=== PATIENT | male | born 1985 | race Caucasian/White ===

== ENCOUNTER 2023-02-23 09:20 | Outpatient (AMB) | payer OTHER, SELFPAY ==
--- NOTE | 2023-02-23 09:25 | AM.OFFWIN_ITS ---
Intake Vital Signs 02/23/23 09:32 Weight 187 lb BP 120/80 Blood Pressure Location Lt brachial Position Sitting Pulse 94 Pulse Source Pulse Oximeter Temp 98.3 F Temp Source Oral Pulse Oximetry (%) 95 Oxygen Delivery Method Room Air Intake Visit Reasons: EP, cough, sore throat Intake Note: Patient here for cough, sore throat and congestion which started about 3 days ago. Patient Tobacco Use Status: Former Tobacco user Allergies Sulfa (Sulfonamide Antibiotics) Adverse Reaction (Mild, Verified 02/23/23 09:56) unknown Medication List - Last Reconciled 02/23/23 by Rita Gonzalez CNP No Known Home Meds Do you need a note to return to daycare/school/sports/work: Yes HPI HPI Comments History of Present Illness Details 37-year-old male presents [facility] for complaint of sore throat, and cough x 3 days. He does report being in contact w/ co-worker whom tested + for Covid 2 weeks ago. He reports fever, chills, sinus pressure, and yellowish-green nasal discharge. He denies SOB, CP, wheezing, sputum production, abdominal pain, nausea, vomiting, or changes in bowels or bladder. He also is requesting a note for absence from work for the last 3 days. [facility] Social History Patient Tobacco Use Status: Former Tobacco user Review of Systems Const All systems reviewed & are unremarkable except as noted in HPI and below Physical Exam Vital Signs: Last Vital Signs Temp 98.3 F 02/23/23 09:32 Pulse 94 02/23/23 09:32 BP 120/80 02/23/23 09:32 Pulse Ox 95 02/23/23 09:32 Oxygen Delivery Method Room Air 02/23/23 09:32 Const General: healthy appearing and no acute distress Nutritional Appearance: well nourished Orientation/consciousness: patient oriented x3 Limitations: no limitations HEENT Head: Yes normal to inspection, Yes normocephalic and Yes atraumatic Ears: hearing grossly normal bilaterally General nose exam: Abnormal mucous membranes and turbinates present erythematous and Nasal discharge present other (dark yellowish green) Face and sinus: Yes sinus tenderness Mouth: moist mucous membranes Throat: Yes postnasal drainage and Yes other (posterior oropharynx erythema, no edema or white patches) Eyes General: appearance normal, both eyes and all related structures Neck Neck: Yes normal visual inspection, Yes full ROM, Yes no lymphadenopathy, Yes no meningeal signs and Yes supple Chest Chest palpation & inspection: normal inspection of the chest Resp Effort & Inspection: normal respiratory effort, Actively coughing Quality: dry, no respiratory distress and not tachypneic Auscultation: clear to auscultation bilaterally, no rales, no rhonchi and no wheezes Cardio Rate: regular rate Rhythm: regular rhythm Heart sounds: S1 normal heart sound present, S2 normal heart sound present and no murmurs Peripheral pulses: Peripheral pulses 2+ throughout GI Palpation (GI): Soft to palpation, nontender and No hepatosplenomegaly present Auscultation: normal bowel sounds General: Yes no CVA tenderness Back/Spine/Pelvis Back: no CVA tenderness Skin General skin exam: no rashes or lesions noted, elasticity normal and turgor normal Neuro General: patient oriented x3, gait normal, moves all extremities and no meningeal signs Extrem General: Yes normal to inspection, Yes full ROM, Yes capillary refill normal and Yes no clubbing, cyanosis or edema Psych Appearance: well kempt Mental Status: mental status grossly normal Speech and movement: Normal speech and movement present Affect: normal affect Results AMB Rapid Strep AMB Rapid Strep Negative Last Edit by LOIS Ray on 02/23/23 09:38 Results Reviewed Results Reviewed: Laboratory Last Values Strep Scn Rapid Clinic Negative 02/23/23 09:37 Assessment & Plan Assessment & Plan (1) Sinusitis: Code(s): J32.9 - Chronic sinusitis, unspecified Qualifiers: Sinusitis location: maxillary Chronicity: acute Recurrence: non- recurrent Qualified Code(s): J01.00 - Acute maxillary sinusitis, unspecified Plan: 37-year-old male seen today for symptoms of acute sinusitis COVID/RSV/influenza nasal PCR negative Rapid strep screen negative Will treat for sinusitis with amoxicillin 500 mg p.o. b.i.d. x7 days, encouraged to take with food or milk to reduce GI upset. Encouraged to drink plenty of fluid and get plenty of rest. Warm salt water gargle for irritated throat Azvs-wox-essowyb nasal saline to bilateral nostrils. Work note provided Will return to office for worsening or unresolved symptoms. Orders: Orders SARS-CoV2/FLU/RSV 02/23/23 R05.9 - Cough, unspecified, R68.89 - Other general symptoms and signs AMB Rapid Strep Screen 02/23/23 Z13.9 - Encounter for screening, unspecified Medications: New amoxicillin 500 mg PO BID 10 caps 0RF J32.9 - Chronic sinusitis, unspecified Coding Level of Care Code Est Pt Level 3 (98334) Diagnoses Acute non-recurrent maxillary sinusitis J01.00 Sinusitis location: maxillary Chronicity: acute Recurrence: non-recurrent
[2023-02-23 09:32] VITALS: BP 120/80; PULSE 94; TEMP 36.8; O2SAT 95
== END 2023-02-23 10:10 | disposition home or self-care (01) ==
PROVIDERS: Visit Provider Nurse Practitioner Acute Care
DX: J01.00 Acute maxillary sinusitis, unspecified (principal)
CPT/HCPCS: 99051; 99213

== ENCOUNTER 2023-02-23 10:00 | Outpatient (REF) | payer OTHER, SELFPAY ==
[2023-02-23 12:37] LABS: Influenza A PCR NEGATIVE (Negative); Influenza B PCR NEGATIVE (Negative); Resp Syncy Virus RNA Qual PCR NEGATIVE (Negative); SARS COV2 PCR INHOUSE NEGATIVE (Negative)
== END 2023-02-23 10:01 | disposition home or self-care (01) ==
LOC: HO.LAB 10:00
PROVIDERS: Visit Provider Nurse Practitioner Acute Care
DX: Z20.822 Contact with and (suspected) exposure to COVID-19 (principal); R05.9 Cough, unspecified; R68.89 Other general symptoms and signs
CPT/HCPCS: 0241U

== ENCOUNTER 2024-01-16 12:51 | Outpatient (AMB) | payer OTHER, SELFPAY ==
--- NOTE | 2024-01-16 12:52 | AM.OFFWIN_ITS ---
Intake Vital Signs 01/16/24 12:53 Height 5 ft 9 in Weight 187 lb BMI 27.6 BP 110/78 Blood Pressure Location Rt brachial Position Sitting Pulse 89 Pulse Source Pulse Oximeter Temp 98.5 F Temp Source Oral Pulse Oximetry (%) 98 Oxygen Delivery Method Room Air Intake Visit Reasons: EP stomach concerns 2-3 days Intake Note: pt c/o stomach upset, N/V x 2-3 days Patient Tobacco Use Status: Former Tobacco user Allergies Sulfa (Sulfonamide Antibiotics) Adverse Reaction (Mild, Verified 01/16/24 12:52) unknown Do you need a note to return to daycare/school/sports/work: No HPI HPI Comments History of Present Illness Details Patient is a 38-year-old male complaining of 2-3 days of nausea vomiting and diarrhea. He states the diarrhea comes and goes and he denies any black in his stools but does state there was some red streaking in one of his bowel movements. He states he has been nauseous and vomited a few times, usually it is random and not after every meal he eats. He denies any blood in his vomit. He does however state that he had 1 episode of bloody vomitus a few months ago that resolved on its own. He does admit to drinking 8 alcoholic drinks per day, 7 days per week. He tells me he does not have a primary care doctor or a GI doctor. He is in the midst of trying to figure out getting a new primary care doctor right now. He denies any fevers. [facility] Social History Patient Tobacco Use Status: Former Tobacco user Review of Systems Const All systems reviewed & are unremarkable except as noted in HPI and below Physical Exam Vital Signs: Last Vital Signs Temp 98.5 F 01/16/24 12:53 Pulse 89 01/16/24 12:53 BP 110/78 01/16/24 12:53 Pulse Ox 98 01/16/24 12:53 Oxygen Delivery Method Room Air 01/16/24 12:53 BMI result Body Mass Index 27.6 Const General: cooperative, healthy appearing, comfortable, no acute distress and well developed Orientation/consciousness: patient oriented x3 Limitations: no limitations HEENT Head: Yes normal to inspection Ears: hearing grossly normal bilaterally General nose exam: Normal external nose present Face and sinus: Yes normal facial exam Eyes General: appearance normal, both eyes and all related structures Neck Neck: Yes normal visual inspection and Yes full ROM Resp Effort & Inspection: normal respiratory effort and able to speak in complete sentences GI Other: Negative Patel's sign Inspection: Yes normal to inspection Palpation (GI): Soft to palpation, nontender, no guarding and No hepatosplenomegaly present Auscultation: normal bowel sounds Skin General skin exam: no rashes or lesions noted Neuro General: patient oriented x3 Extrem General: Yes normal to inspection Assessment & Plan Assessment & Plan (1) Abdominal pain: Code(s): R10.9 - Unspecified abdominal pain Qualifiers: Abdominal location: lower abdomen, unspecified Qualified Code(s): R10.30 - Lower abdominal pain, unspecified Plan: Vital signs are stable, physical exam was unremarkable. Likely viral gastroenteritis. We will give him some Bentyl to manage his symptoms until it resolves. Gave patient red flag warning signs and when to go to the emergency department. We had an extensive conversation about the differential as well as his drinking and how that is contributing to his overall health; we also discussed cutting back on his drinking versus quitting and how dangerous quitting alcohol cold turkey can be. Educated patient on the importance of having a primary care doctor and then establishing care with a GI doctor. (2) Nausea and vomiting: Code(s): R11.2 - Nausea with vomiting, unspecified Qualifiers: Vomiting type: unspecified Qualified Code(s): R11.2 - Nausea with vomiting, unspecified Plan: See above Plan See above Medications: New dicyclomine 20 mg PO Q6H PRN 14 tabs 0RF abdominal pain Coding Level of Care Code New Pt Level 4 (69812) Diagnoses Lower abdominal pain R10.30 Abdominal location: lower abdomen, unspecified Nausea and vomiting, unspecified vomiting type R11.2 Vomiting type: unspecified
[2024-01-16 12:53] VITALS: BP 110/78; PULSE 89; TEMP 36.9; O2SAT 98; BMI 27.6
== END 2024-01-16 13:23 | disposition home or self-care (01) ==
PROVIDERS: Visit Provider Physician Assistant
DX: R10.30 Lower abdominal pain, unspecified (principal); R11.2 Nausea with vomiting, unspecified
CPT/HCPCS: 99204

== ENCOUNTER 2024-09-11 08:53 | Emergency (ER) | payer OTHER, SELFPAY ==
[2024-09-11 08:57] VITALS: BP 120/82; PULSE 84
[2024-09-11 09:03] VITALS: BMI 29.9
[2024-09-11 09:18] VITALS: PULSE 84
--- NOTE | 2024-09-11 09:21 | PC.NURSE ---
Calm and cooperative, changed over with security, provided with food/fluids per patient request.
--- NOTE | 2024-09-11 09:33 | PC.NURSE ---
Seen by [employer] argumentative regarding needing to be picked up by a sober compactor driver. Provided with phone to call
--- NOTE | 2024-09-11 09:39 | MHC.EDTECH ---
Patient is refusing all testing. RN aware.
--- NOTE | 2024-09-11 09:42 | PC.NURSE ---
Patient called mother to pick him up, mother stating that patient was in rehab i dec and that patient struggles with substance abuse. States she knows he is no longer sober and does not think that she will be coming tp pick him up because she does not think it is safe to drop him off at home like this. Patient aware , stating he will call his .
--- NOTE | 2024-09-11 09:59 | ED.ALCOHOL ---
HPI - Alcohol General Chief Complaint: ETOH/Substance Use Stated Complaint: ETOH Time Seen by Provider: 09/11/24 09:03 Source: patient and EMS Mode of arrival: EMS Limitations: no limitations History of Present Illness ED Provider: Wendi Barber NP HPI narrative: Patient is a 38-year-old male who presents emergency department via EMS for a well-being check [place]. Patient endorsed getting onto the bus this morning so that he could go to work does not know how he ended up in [place], states he intended to get off in [place]. When asked, he states ?I drank all day and every day?. He admits to daily marijuana usage as well. He additionally endorses using recreational drugs but will not disclose as to which stating ?I do not wanted on my record?. When asked whether he is interested in detox at this time he responds no, sudden that he was recently in detox with can not provide any specific details as to when and where. He offers no physical complaints at this time. Related Data Previous Rx's ?Medication ?Instructions ?Recorded dicyclomine 20 mg tablet 20 mg PO Q6H PRN abdominal pain 01/16/24 #14 tabs Allergies Allergy/AdvReac Type Severity Reaction Status Date / Time Sulfa (Sulfonamide AdvReac Mild unknown Verified 09/11/24 09:06 Antibiotics) Review of Systems Review of Systems: Yes all other systems are reviewed and are negative PMFSH Past Medical History Attestation statement: The following information was validated with the patient. Source: old records reviewed Social History Social History Alcohol intake: current Alcohol intake frequency: 3 or more drinks per day Patient Tobacco Use Status: Former Tobacco user Smoked in Last 30 Days: No Use of substances other than those prescribed or required for medical reasons: Yes Substance Use Type: Marijuana Substance Use Type Other:: states uses another drug but unwilling to say what drug at this time Substance Use Frequency: Chronic Longstanding Advance Directives: No Advance Directives Information Provided: No Do you have a plan to hurt others: No Plan Physical Exam ED Vital Signs: Vital Signs - 24 hr 09/11/24 10:11 Temperature 98.8 F Pulse Rate 88 Respiratory Rate 18 Blood Pressure 118/61 Pulse Oximetry 98 Oxygen Delivery Method Room Air BMI result Body Mass Index 29.9 Appearance: Alert.?Oriented to person, and place. Appears intoxicated, has an aroma of alcohol in his breath when speaking. Frequently repeating statements over and over again Eyes: Pupils equal, round and reactive to light.? ENT: Pharynx normal.?? Neck: Normal inspection.? Neck supple.?? CVS: Heart sounds normal. Normal heart rate and rhythm.? Pulses normal.?? Respiratory: No respiratory distress.? Lung sounds clear to auscultation bilaterally?? Abdomen: Soft and non-tender. Normoactive bowel sounds. ? Skin: Skin warm and dry.? Normal skin color.? ? Extremities: No lower extremity edema.? Neuro: Moves all extremities spontaneously. Sensation intact bilaterally. CN II-XII intact. No focal neuro deficits. Ambulates with unsteady gait. Course Reevaluation(s) Reevaluation #1: clinically patient is sober ambulatory with a steady gait, speaking clear full sentences, remains without any physical complaints. Examination is benign. He continues to decline interest in assistance with detox services. Does not wish to cut back on his alcohol consumption at this time. He do not ultimately admit that he used acid last night. He declines any additional recreational drug usage. A drug abuse screen was not obtained, however no reason that he needs to be held in the emergency department for this. Physician observation ending at this time 15:32 on 09/11/2024. Medical Decision Making Medical Decision Making MDM Narrative: Patient is a 38-year-old male with past medical history of polysubstance use disorder who presents emergency department via EMS coming from a bus station as per HPI. He is not certain how he got to [place] today. He arrives stating that he drinks all day and every day. He does clinically appear to be intoxicated, when I made him aware of this and was advised that he could not leave the emergency department until he had a sober ride he became very upset with me. He was able to be verbally deescalated. He was provided with a phone so that he could contact family/friends for a safe ride home. At this time he is declining to have vital signs obtained, and/or serum labs. He has no focal neurological deficits on evaluation. I suspect that his lapse of memory as to how he arrived in [place] rather than [place] is secondary to his alcohol usage rather than acute intracranial pathology. Differential Diagnosis Differential Diagnoses: The differential diagnosis associated with the presentation includes (See narrative above and below for further detail) Admission/Observation Consideration of admission/observation: Escalation of care including admission/observation considered Patient is being observed in the Emergency Department for encephalopathy. Observation time was started at 10:06 on 09/11/2024.?The patient is currently stable and non-toxic appearing. Observation is being initiated in the Emergency Department to allow time to help differentiate if the patient?s encephalopathy and delirium is due to alcohol intoxication and polysubstance abuse versus stroke, transient ischemic attack, major depression, overdose of medication, arrhythmia, seizure, or closed head injury/concussion. The patient will receive frequent assessments from the provider as well as the nursing staff. The patient will be monitored for the need for diagnostic imaging such as a CT head, MRI brain, chest x-ray, and serial EKGs to evaluate for prolonged QTc intervals. The patient will also be monitored for the need of PRN agitation medications such as Haldol, Ativan, and Benadryl. Consult Healthcare Provider Management of the patient was discussed with: Behavioral Health Provider (CARE team) Lab Data 09/11/24 10:18 09/11/24 10:18 Labs: Lab Results 09/11/24 Range/Units 10:18 WBC 8.3 (4.8-10.8) X10*3/uL RBC 4.59 L (4.60-5.80) X10*6/uL Hgb 14.5 (14.0-18.0) g/dl Hct 40.0 L (42.0-52.0) % MCV 87.1 (80.0-98.0) fL MCH 31.6 (27.0-33.0) pg MCHC 36.3 H (31.0-36.0) g/dl RDW 12.2 (11.0-16.0) % Plt Count 241 (160-400) X10*3/uL MPV 10.2 (9.4-12.4) fL Immature Gran % (Auto) 0.2 (0.0-0.4) % Neut % (Auto) 52.7 (45-73) % Lymph % (Auto) 35.6 (20-40) % Dougherty % (Auto) 9.0 (2-11) % Eos % (Auto) 1.8 (0-4) % Baso % (Auto) 0.7 (0-2) % Lymph # (Auto) 2.9 (1.2-4.9) X10*3/uL Dougherty # (Auto) 0.7 (0.1-1.2) X10*3/uL Eos # (Auto) 0.2 (0.0-0.4) X10*3/uL Baso # (Auto) 0.1 (0.0-0.2) X10*3/uL Abs Immat Gran (auto) 0.02 (0.00-0.03) X10*3/uL Absolute Neuts (auto) 4.4 (2.0-8.3) x10*3/uL Absolute Nucleated RBC 0.000 (0.0-0.012) X10*3/uL Nucleated RBC % (auto) 0.0 (0.0-0.2) /100WBC Sodium 142 (135-145) mmol/L Potassium 3.5 (3.3-5.1) mmol/L Chloride 111 H (96-108) mmol/L Carbon Dioxide 19 L (22-29) mmol/L Anion Gap 16 (12-20) BUN 11 (9-16) mg/dL Creatinine 0.86 (0.5-1.4) mg/dL Estim Creat Clear Calc 131.5 Estimated GFR > 60 Random Glucose 121 H (60-115) mg/dL Calcium 9.2 (8.4-10.2) mg/dL Total Bilirubin 0.5 (0.0-1.0) mg/dL AST 75 H (5-37) U/L ALT 66 H (0-40) U/L Alkaline Phosphatase 63 (39-117) U/L Total Protein 7.2 (6.5-8.0) g/dL Albumin 4.6 (3.5-5.0) g/dL Salicylates < 5.0 L (15-30) mg/dL Acetaminophen < 3 (<30) mcg/mL Ethyl Alcohol 224 mg/dL Independent Historian Clinical information obtained from an independent historian. History obtained from or confirmed by: EMS External Record Review External record reviewed: Outpatient record Discharge Plan Discharge Clinical Impression: Alcoholic intoxication Patient Disposition: Home, Self-Care Instructions: Alcohol Intoxication (ED) Additional Instructions: Alcohol use disorder You were seen in the Emergency Department today for treatment of alcohol use disorder.? You may have been given medications to help with your withdrawal symptoms.? Please do not drink alcohol with them. This is very dangerous and can cause respiratory depression or other adverse reactions depending on the medication. If you would like to cut down or stop your alcohol use please consider calling our outpatient Addiction Treatment office:? [facility] [place] (M-F [id number]) [address] [place] [address] ? You have also been given a list of treatment providers in the area that can assist as well.? If you experience seizures, vomiting blood, black stools, falls, severe headache, chest pain, fevers, trouble breathing, hallucinations or any other concerns you need to call 911 or seek immediate care. Please stay hydrated. Prescriptions: No Action dicyclomine 20 mg tablet 20 mg PO Q6H PRN (Reason: abdominal pain) Qty: 14 0RF Referrals: Physician,None [Primary Care Provider] - Print Language: Syrian
--- OUTSIDE RECORDS SUMMARY | 2024-09-11 10:03 | XMS_ITS | Clinical Summary ---
Author Organization [facility] Address [address] [place] [address] Care Team Providers Care Director Of Software Development Name Role Phone Horacio Chun MD Primary Care Provider Surgical History Surgery Date Site/Laterality Comments OTHER SURGICAL HISTORY PROCEDURE: DENIES PREVIOUS SURGERY Family History Medical History Relation Name Comments No Known Problems Father Bipolar disorder Maternal Grandfather adilson cide No Known Problems Maternal Grandmother No Known Problems Mother No Known Problems Paternal Grandfather No Known Problems Paternal Grandmother Relation Name Status Comments Father Alive Maternal Grandfather Maternal Grandmother Mother Alive Paternal Grandfather Paternal Grandmother Social History Tobacco Use Types Packs/Day Years Used Date Smoking Tobacco: Every Day Smokeless Tobacco: Never Alcohol Use Standard Drinks/Week Comments No 0 (1 standard drink = 0.6 oz pur e alcohol) Sex and Gender Information Value Date Recorded Sex Assigned at Not on file Legal Sex Male 10:53 PM EST Gender Identity Not on file Sexual Orientation Not on file Obstetrics History Plan of Treatment Health Maintenance Due Date Last Done Comments DTaP,Tdap,and Td Vaccines (1 - Tdap) 2005 Hepatitis B Vaccines (1 of 3 - 19+ 3-dose series) 2005 Pneumococcal Vaccine: Pediat rics (0 to 5 Years) and At-Risk Patients (6 to 64 Years) (1 of 2 - PCV) 2005 Cholesterol Screening (Lipid Panel) 04/29/2022 Depression Screening 04/29/2022 HIV Screening 04/29/2022 Hepatitis C Screening 04/29/2022 Social Influencers of Health Screening 04/29/2022 COVID-19 Vaccine ( - 2023-2 5 season) 2024 Influenza Vaccine (Season Ended) 2025 HIB Vaccines Aged Out No longer eligi ble based on patient's age to complete this topic HPV Vaccines Aged Out No longer eligi ble based on patient's age to complete this topic Hepatitis A Vaccines Aged Out No long er eligible based on patient's age to complete this topic IPV Vaccines Aged Out No longer eligi ble based on patient's age to complete this topic MMR Vaccines Aged Out No longer eligi ble based on patient's age to complete this topic Meningococcal ACWY Vaccine Aged Out N o longer eligible based on patient's age to complete this topic Meningococcal B Vaccine Aged Out No l onger eligible based on patient's age to complete this topic RSV Immunization Patients Un balta 20 months Aged Out No longer eligible b ased on patient's age to complete this topic Varicella Vaccines Aged Out No longer eligible based on patient's age to complete this topic Care Teams Director Of Software Development Relationship Specialty Start Date End Date Horacio Chun MD [address] [place] [address] ODESSA ZUNIGA [id number] PCP - General Internal Medicine 11/10/18
--- OUTSIDE RECORDS SUMMARY | 2024-09-11 10:03 | XMS_ITS | Clinical Summary ---
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 Role Phone Unavailable Primary Care Provider Unavailabl e Social History Tobacco Use Types Packs/Day Years Used Date Smoking Tobacco: Never Assessed Sex and Gender Information Value Date Recorded Sex Assigned at Not on file Legal Sex Male 9:02 AM EDT Gender Identity Not on file Sexual Orientation Not on file Plan of Treatment Health Maintenance Due Date Last Done Comments Hepatitis B Vaccine (1 of 3 - 19+ 3-dose series) 2005 Influenza Vaccine (Season Ended) 2025 Pneumococcal Vaccine: Peds ( 0 to 5 Years) and At-Risk Patients (6 to 49 Years) Aged Out No longer eligible b ased on patient's age to complete this topic
[2024-09-11 10:11] VITALS: BP 118/61; PULSE 88; RESP 18; TEMP 37.1; O2SAT 98
[2024-09-11 10:23] LABS: MANUAL DIFF FLAG NO
[2024-09-11 10:31] LABS: Basophils Absolute Auto 0.1 X10*3/uL (0.0-0.2); Basophils Percent Auto 0.7 % (0-2); Eosinophils Absolute Auto 0.2 X10*3/uL (0.0-0.4); Eosinophils Percent Auto 1.8 % (0-4); Hemoglobin 14.5 g/dl (14.0-18.0); Imm Gran Abs Auto 0.02 X10*3/uL (0.00-0.03); Imm Gran Pct Auto 0.2 % (0.0-0.4); Lymphocytes Absolute Auto 2.9 X10*3/uL (1.2-4.9); Lymphocytes Percent Auto 35.6 % (20-40); Mean Corpuscular HGB Conc 36.3 g/dl (31.0-36.0); Mean Corpuscular Hemoglobin 31.6 pg (27.0-33.0); Mean Corpuscular Volume 87.1 fL (80.0-98.0); Mean Platelet Volume 10.2 fL (9.4-12.4); Monocytes Absolute Auto 0.7 X10*3/uL (0.1-1.2); Neutrophils Absolute Auto 4.4 x10*3/uL (2.0-8.3); Neutrophils Percent Auto 52.7 % (45-73); Platelet Count 241 X10*3/uL (160-400); Red Blood Count 4.59 X10*6/uL (4.60-5.80); Red Cell Distribution Width 12.2 % (11.0-16.0); White Blood Count 8.3 X10*3/uL (4.8-10.8)
--- NOTE | 2024-09-11 10:37 | PC.NURSE ---
Patient allowing for vitals and labs to be drawn. Stating uses acid weekly , last used last night.
[2024-09-11 10:41] LABS: Acetaminophen LAB < 3 mcg/mL (<30); Alanine Aminotransferase 66 U/L (0-40); Albumin Level 4.6 g/dL (3.5-5.0); Alkaline Phosphatase 63 U/L (39-117); Anion Gap 16 (12-20); Aspartate Amino Transferase 75 U/L (5-37); Bilirubin Total 0.5 mg/dL (0.0-1.0); Blood Urea Nitrogen 11 mg/dL (9-16); Calcium 9.2 mg/dL (8.4-10.2); Carbon Dioxide 19 mmol/L (22-29); Chloride 111 mmol/L (96-108); Creatinine Clr Calc Pharmacy 131.5; Estimated Glomerular Filt Rate > 60; Ethanol 224 mg/dL; Glucose Random 121 mg/dL (60-115); Potassium 3.5 mmol/L (3.3-5.1); Salicylate < 5.0 mg/dL (15-30); Sodium 142 mmol/L (135-145); Total Protein 7.2 g/dL (6.5-8.0)
--- NOTE | 2024-09-11 12:27 | PC.NURSE ---
Patient sleeping, respirations even and unlabored
--- NOTE | 2024-09-11 15:34 | PC.NURSE ---
Patient slept until 3pm , woke up and ambulated to bathroom with steady gait. Denies pain or discomfort. Speaking on phone with his boss regarding not showing up to work today. Denies withdrawl symptoms.
[2024-09-11 15:44] VITALS: BP 118/61; PULSE 88; RESP 18; TEMP 37.1; O2SAT 98
== END 2024-09-11 15:53 | disposition home or self-care (01) ==
PROVIDERS: Nurse Practitioner Family; Emergency Provider Emergency Medicine Emergency Medical Services
DX: F10.129 Alcohol abuse with intoxication, unspecified (principal); Y90.7 Blood alcohol level of 200-239 mg/100 ml; Z51.81 Encounter for therapeutic drug level monitoring; Z79.899 Other long term (current) drug therapy
CPT/HCPCS: 36415; 80053; 80143; 80179; 80307; 85025; 99284

== ENCOUNTER 2024-12-29 13:16 | Emergency (ER) | payer OTHER, SELFPAY ==
[2024-12-29 13:26] VITALS: BP 131/61; PULSE 76; RESP 16; TEMP 36.5; O2SAT 98; BMI 26.0
--- NOTE | 2024-12-29 13:27 | ED_ITS ---
HPI - Psych General Chief Complaint: Psychiatric Symptoms Stated Complaint: detox Time Seen by Provider: 12/29/24 13:54 Source: patient and family ( - brooke) Mode of arrival: ambulatory Limitations: no limitations History of Present Illness ED Provider: TEE MEDINA PA-C HPI Narrative: 39-year-old male with pmhx significant for substance use disorder (daily crack cocaine use) and ETOH dependence presents to the ED today requesting detox. Patient states I've been smoking crack like crazy and I need to stop . Reports last using approximately 36 hours ago. Admits to daily alcohol consumption however reports consuming less alcohol over the last 3 months since he started smoking crack. He last drink approximately half bottle of wine this morning. He typically drinks 10-20 vodka drinks daily. Denies history of ETOH withdrawal or withdrawal seizures. Denies AH/VH/TH. Denies SI or HI. Related Data Previous Rx's ?Medication ?Instructions ?Recorded dicyclomine 20 mg tablet 20 mg PO Q6H PRN abdominal p ain 01/16/24 #14 tabs Allergies Allergy/AdvReac Type Severity Reaction Status Date / Time Sulfa (Sulfonamide AdvReac Mild unknown Verified 12/29/24 13:28 Antibiotics) Review of Systems 2 Review of Systems: Yes all other systems are reviewed and are negative PMFSH Past Medical History Attestation statement: The following information was validated with the patient. Source: old records reviewed and nursing notes reviewed Social History Social History Alcohol intake: current Alcohol intake frequency: 3 or more drinks per day Alcohol type: hard liquor Patient Tobacco Use Status: Former Tobacco user Smoked in Last 30 Days: No Substance Use Type: Crack/Cocaine Advance Directives: No Advance Directives Information Provided: Yes Do you have a plan to hurt others: No Plan Physical Exam 2 Vital Signs: Vital Signs: Last Vital Signs Temp 97.7 F 12/29/24 13:26 Pulse 76 12/29/24 13:26 Resp 16 12/29/24 13:26 BP 131/61 12/29/24 13:26 Pulse Ox 98 12/29/24 13:26 O2 Del Method Room Air 12/29/24 13:26 BMI result Body Mass Index 26.0 vital signs stable General: fidgety, no acute distress Skin: Warm, dry, intact. No rashes or lesions. Head: Normocephalic, atraumatic. EENT: Hearing is intact b/l. Conjunctiva clear. Sclera is anicteric. PERRLA. EOM intact. Moist mucous membranes.? Neck: Supple without LAD Cardiac: Chest wall symmetric. RRR Lungs: Normal respiratory effort without accessory muscle use. CTA bilaterally. Abdomen: Soft, non-tender, non-distended. No rebound tenderness or guarding. Positive BS x4. Back: No midline spinous or paraspinal tenderness. No step off deformity. Ext: Upper and lower extremities atraumatic, without tenderness, deformity, swelling or erythema Neuro: AOx3. Normal speech. CN 2-12 grossly intact. Ambulating with steady gait. Course Course Course Narrative: This is a Rapid Medical Examination (RME) performed by Sonali Jackson PA-C in triage. Full HPI, ROS, assessment and treatment plan per primary provider in the Main ED. 39 yo male with history of substance use disorder (daily crack cocaine use), etoh use disorder who presents to the ER for detox. he states i've been smoking crack like crazy and i need to stop. last use 36 hours ago. daily ETOH use, last was this morning. 10-20 vodka drinks per day. no history of withdrawal or seizures in the past. used LSD and ecstacy recently as well. Plan: labs, ekg, medical clearance Reevaluation(s) Reevaluation #1: 1441 -- CBC without leukocytosis or left shift. Normocytic anemia, H&H above transfusion threshold. Chemistry without acute electrolyte abnormality requiring intervention. No NOE. Liver function WNL. Urine without infection. Urine toxicology positive for cocaine, otherwise negative. Ethanol undetectable. > will add on CIWA. at this time, patient is medically cleared for recovery consult. placed in phys obs pending consult + placement. 183 -- Bhakti from care/recovery team has met with patient. Patient has a bed at [facility] - they will be transporting him from our ED to their facility. patient is agreeable. he is stable for discharge to detox at this time. Physician observation ended at 184. Medical Decision Making Medical Decision Making MDM Narrative: 39-year-old male with pmhx significant for substance use disorder (daily crack cocaine use) and ETOH dependence presents to the ED today requesting detox. Differential diagnosis includes anemia, electrolyte abnormality, etoh abuse, polysubstance abuse Presentation not consistent with acute organic causes to include delirium, dementia or drug induced disorders (acute ingestions or withdrawal; no evidence of toxidrome).? Plan: labs, EKG, ASA/APAP levels, ETOH level, UDS,recovery team consultation, reassessment Differential Diagnosis Differential Diagnoses: The differential diagnosis associated with the presentation includes as above. Admission/Observation Consideration of admission/observation: Escalation of care including admission/observation considered Lab Data MDM Lab Attestation statement: I reviewed the patient's lab results. as above. 12/29/24 13:42 12/29/24 13:42 Labs: Lab Results 12/29/24 12/29/24 12/29/24 Range/Units 13:42 14:04 14:42 WBC 5.4 (4.8-10.8) X10*3/uL RBC 4.35 L (4.60-5.80) X10*6/uL Hgb 13.8 L (14.0-18.0) g/dl Hct 39.3 L (42.0-52.0) % MCV 90.3 (80.0-98.0) fL MCH 31.7 (27.0-33.0) pg MCHC 35.1 (31.0-36.0) g/dl RDW 12.0 (11.0-16.0) % Plt Count 218 (160-400) X10*3/uL MPV 10.9 (9.4-12.4) fL Immature Gran % (Auto) 0.2 (0.0-0.4) % Neut % (Auto) 57.0 (45-73) % Lymph % (Auto) 31.0 (20-40) % [place] % (Auto) 9.3 (2-11) % Eos % (Auto) 2.1 (0-4) % Baso % (Auto) 0.4 (0-2) % Lymph # (Auto) 1.7 (1.2-4.9) X10*3/uL [place] # (Auto) 0.5 (0.1-1.2) X10*3/uL Eos # (Auto) 0.1 (0.0-0.4) X10*3/uL Baso # (Auto) 0.0 (0.0-0.2) X10*3/uL Abs Immat Gran (auto) 0.01 (0.00-0.03) X10*3/uL Absolute Neuts (auto) 3.1 (2.0-8.3) x10*3/uL Absolute Nucleated RBC 0.000 (0.0-0.012) X10*3/uL Nucleated RBC % (auto) 0.0 (0.0-0.2) /100WBC Sodium 143 (135-145) mmol/L Potassium 4.0 (3.3-5.1) mmol/L Chloride 109 H (96-108) mmol/L Carbon Dioxide 26 (22-29) mmol/L Anion Gap 12 (12-20) BUN 8 L (9-16) mg/dL Creatinine 0.82 (0.5-1.4) mg/dL Estim Creat Clear Calc 126.1 Estimated GFR > 60 Random Glucose 99 (60-115) mg/dL Calcium 8.8 (8.4-10.2) mg/dL Magnesium 2.0 (1.6-2.6) mg/dL Total Bilirubin 0.3 (0.0-1.0) mg/dL Direct Bilirubin 0.1 (0.0-0.5) mg/dL AST 29 (5-37) U/L ALT 25 (0-40) U/L Alkaline Phosphatase 67 (39-117) U/L Total Protein 6.5 (6.5-8.0) g/dL Albumin 4.2 (3.5-5.0) g/dL Urine Color Yellow Urine Appearance Clear Urine pH 6.5 (5.0-9.0) Ur Specific Alexis 1.020 (1.005-1.025) Urine Protein Negative (Neg-Trace) mg/dL Urine Glucose (UA) Negative (Negative) mg/dL Urine Ketones Negative (Negative) mg/dL Urine Blood Negative (Negative) Urine Nitrite Negative (Negative) Ur Leukocyte Esterase Trace H (Negative) Urine RBC 0-2 (0-2) /HPF Urine WBC 0-5 (0-5) /HPF Ur Squamous Epith Cells 0-2 (0-2) /HPF Urine Bacteria None Seen (None Seen) Hyaline Casts 0-2 (0-2) /LPF Salicylates < 5.0 L (15-30) mg/dL Urine Opiates Screen Not Detected (Not Detect) Ur Buprenorphine Scrn Not Detected (Not Detect) ng/mL Ur Oxycodone Screen Not Detected (Not Detect) ng/mL Urine Methadone Screen Not Detected (Not Detect) ng/mL Urine Fentanyl Screen Not Detected (Not Detect) Acetaminophen < 3 (<30) mcg/mL Ur Barbiturates Screen Not Detected (Not Detect) Ur Phencyclidine Scrn Not Detected (Not Detect) Ur Amphetamines Screen Not Detected (Not Detect) U Benzodiazepines Scrn Not Detected (Not Detect) Urine Cocaine Screen POSITIVE H (Not Detect) U Marijuana (THC) Screen Not Detected (Not Detect) Ethyl Alcohol < 10 mg/dL Independent Interpretation I performed an independent interpretation of an: EKG Interpretation: ekg showing NSR with rate of 67 bpm, incomplete RBBB, no priors to compare to Radiology Impression Discussion of test interpretation with radiology: I have reviewed the radiologist's reading. Radiologist Impression: Ordering Physician: Portia Jackson Date of Service: 12/29/24 Procedure(s): ECG 12 lead EKG Accession Number(s): [id number] cc: ~ Test Reason : DETOX Blood Pressure : */* mmHG Vent. Rate : 67 BPM Atrial Rate : 67 BPM P-R Int : 140 ms QRS Dur : 94 ms QT Int : 396 ms P-R-T Axes : 43 16 44 degrees QTcB Int : 418 ms Normal sinus rhythm Incomplete right bundle branch block Cannot rule out Anterior infarct , age undetermined Abnormal ECG No previous ECGs available Referred By: Portia Jackson Electronically Signed By: Independent Historian Clinical information obtained from an independent historian. History obtained from or confirmed by: Spouse (brooke - ) External Record Review External record reviewed: Inpatient record Chronic Conditions Patient?s care impacted by: Other (polysubstance and etoh abuse) Social Determinants Patient?s care significantly limited by Social Determinants of Health including: Alcoholism and drug addiction in family and Other Social Determinant of Health Critical Care Time Critical Care Time Critical Care Time: No Discharge Plan Discharge Clinical Impression: Cocaine abuse, Alcohol abuse Patient Disposition: Xfer Other Transfer Details: [facility] Instructions: Cocaine Use Disorder (ED), Abuse of Alcohol (ED) Additional Instructions: You presented to our facility today requesting detox. Your workup today is reassuring. You met with our care/recovery team and are being discharged to a detox facility ([facility]). They will be transporting you from our ED to their facility. Prescriptions: No Action dicyclomine 20 mg tablet 20 mg PO Q6H PRN (Reason: abdominal pain) Qty: 14 0RF Interventions: Chambers-Suicide Risk Severity Scale Last Done: 12/29/24 16:48 Print Language: Nigerian
[2024-12-29 13:49] LABS: MANUAL DIFF FLAG NO
[2024-12-29 13:54] LABS: Hematocrit 39.3 % (42.0-52.0); Hemoglobin 13.8 g/dl (14.0-18.0); Imm Gran Abs Auto 0.01 X10*3/uL (0.00-0.03); Imm Gran Pct Auto 0.2 % (0.0-0.4); Lymphocytes Absolute Auto 1.7 X10*3/uL (1.2-4.9); Mean Corpuscular HGB Conc 35.1 g/dl (31.0-36.0); Mean Corpuscular Hemoglobin 31.7 pg (27.0-33.0); Mean Corpuscular Volume 90.3 fL (80.0-98.0); NRBC Abs Auto 0.000 X10*3/uL (0.0-0.012); NRBC Pct Auto 0.0 /100WBC (0.0-0.2); Platelet Count 218 X10*3/uL (160-400); Red Blood Count 4.35 X10*6/uL (4.60-5.80); White Blood Count 5.4 X10*3/uL (4.8-10.8)
[2024-12-29 14:12] LABS: Appearance Urine Clear; Glucose Urine UA Negative (Negative); PH 6.5 (5.0-9.0); Specific Gravity - Urine 1.020 (1.005-1.025); UMIC TRIGGER UACC YES
[2024-12-29 14:14] LABS: Alanine Aminotransferase 25 U/L (0-40); Albumin Level 4.2 g/dL (3.5-5.0); Alkaline Phosphatase 67 U/L (39-117); Anion Gap 12 (12-20); Aspartate Amino Transferase 29 U/L (5-37); Blood Urea Nitrogen 8 mg/dL (9-16); Calcium 8.8 mg/dL (8.4-10.2); Carbon Dioxide 26 mmol/L (22-29); Chloride 109 mmol/L (96-108); Creatinine Clr Calc Pharmacy 126.1; Estimated Glomerular Filt Rate > 60; Magnesium 2.0 mg/dL (1.6-2.6); Potassium 4.0 mmol/L (3.3-5.1); Sodium 143 mmol/L (135-145); Total Protein 6.5 g/dL (6.5-8.0)
[2024-12-29 14:27] LABS: Cannabinoid Screen Urine Not Detected (Not Detect)
--- OUTSIDE RECORDS SUMMARY | 2024-12-29 14:58 | XMS_ITS | Clinical Summary ---
Author Organization [facility] Address [address] [place] [address] Care Team Providers Care Safety Teacher Name Role Phone Horacio Chun MD Primary [...] of 3 - 19+ 3-dose series) 2005 COVID-19 Vaccine ( - 2023-2 5 season) 2024 Depression Screening 05/27/2024 Influenza Vaccine (#1) 2025 HIB Vaccines Aged Out No longer [...] on patient's age to complete this topic Pneumococcal Vaccine: Pediat rics (0 to 5 [...] age to complete this topic Care Teams Safety Teacher Relationship Specialty Start Date End Date Horacio Chun MD [address] [place] [address] [place] [address] PCP - General Internal Medicine 11/10/18
--- OUTSIDE RECORDS SUMMARY | 2024-12-29 14:58 | XMS_ITS | Clinical Summary ---
Author Organization [facility] Facility Address [address] [address] Care Team Providers Care Photo Retoucher Name Role Phone Unavailable Primary Care Provider [...] - 19+ 3-dose series) 2005 Influenza Vaccine (#1) 2025 Pneumococcal Vaccine: Peds ( 0 to 5 Years) and At-Risk Patients (6 to 49 Years) Aged Out No longer eligible b ased on patient's age to complete this topic
[2024-12-29 15:05] LABS: Acetaminophen LAB < 3 mcg/mL (<30); Salicylate < 5.0 mg/dL (15-30)
[2024-12-29 18:48] VITALS: BP 131/61; PULSE 76; RESP 16; TEMP 36.5; O2SAT 98
== END 2024-12-29 18:50 | disposition home or self-care (01) ==
PROVIDERS: Physician Assistant; Physician Assistant Medical; Emergency Provider Emergency Medicine
DX: F14.10 Cocaine abuse, uncomplicated (principal); F10.10 Alcohol abuse, uncomplicated; Y90.0 Blood alcohol level of less than 20 mg/100 ml; Z79.899 Other long term (current) drug therapy
CPT/HCPCS: 36415; 80048; 80076; 80143; 80179; 80307; 81001; 83735; 85025; 93005; 99281; 99284; 99285; S9485

== ENCOUNTER → 2024-12-29 13:28 | Outpatient (BNV) | payer OTHER, SELFPAY | PROVIDERS: Emergency Provider Emergency Medicine; Visit Provider Internal Medicine | DX: I45.10 Unspecified right bundle-branch block (principal) | CPT/HCPCS: 93010 ==

== ENCOUNTER 2025-04-14 09:45 | Outpatient (REF) | payer OTHER, SELFPAY ==
--- NOTE | ~2025-04-14 | XR_ITS ---
EXAMINATION: XR HAND, LEFT CLINICAL INFORMATION: S69.90XA - Unspecified injury of unspecified wrist, hand and finger(s), ... COMPARISON: None available. TECHNIQUE: AP and lateral views of the left hand. FINDINGS: Alignment is anatomic. There is increased density/sclerotic appearance of the triquetrum; this of uncertain etiology, could be related to overlapping densities versus sclerotic process. No visible acute fracture or dislocation. No significant joint space narrowing or osteophytes. No erosions. No abnormal soft tissue calcification. XR/XR hand LT 2V IMPRESSION: Sclerotic appearance of the triquetrum. Recommend dedicated wrist x-rays for further evaluation. Electronically signed by: Dane Jama MD 04/14/2025 04:31 PM DEBBIE
== END 2025-04-14 09:46 | disposition home or self-care (01) ==
LOC: HO.XRAY 09:45
PROVIDERS: PCP Internal Medicine; Visit Provider Internal Medicine
DX: Z00.00 Encounter for general adult medical examination without abnormal findings (principal); S69.90XA Unspecified injury of unspecified wrist, hand and finger(s), initial encounter; F19.90 Other psychoactive substance use, unspecified, uncomplicated
CPT/HCPCS: 73120

== ENCOUNTER 2025-04-14 09:45 | Outpatient (AMB) | payer OTHER, SELFPAY ==
[2025-04-14 09:58] VITALS: BP 122/70; PULSE 86; RESP 18; O2SAT 98; BMI 28.6
--- NOTE | 2025-04-14 09:58 | A.OFFPC_ITS ---
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 Design Drafter Required: No Accompanied by: Self / Same As Patient Allergies Sulfa (Sulfonamide Antibiotics) Adverse Reaction (Mild, Verified 04/14/25 10:02) unknown Medication List - Last Reconciled 04/14/25 by Joellen Reyes MD gabapentin ER 300 mg PO .6 times day Tobacco use date assessed: 04/14/25 Dental Screening Dental Screen Date: 04/14/25 Did you have a dental visit in the last 12 months?: No Did you have a dental problem in the last 6 months where you did not have access to dental care?: No Was dental information given to patient?: No HPI HPI Comments History of Present Illness Details The patient is a 39-year-old male with PMH of substance use disorder in remission, AUD currentl in rehab, presenting to [facility] primary care and for evaluation of a left finger injury. The finger injury occurred approximately three months ago while playing catch with a football, which jammed his left ring finger He was evaluated at an outside hospital, where an x-ray was performed, and he was informed that he had a broken tendon that would require surgery. Initially, his finger was stuck in a flexed position, but he reports that he is now able to move and straighten it on his own. The patient has a history of substance abuse, including crack cocaine, alcohol, and marijuana, with crack cocaine being the main problem. He was prescribed gabapentin by a psychiatrist at a rehab facility but has not been taking it consistently. He reports recent relapses, including one episode that lasted two days, and is planning to return to a rehab facility today. He reports smoking crack and denies intravenous drug use. The patient denies a family history of colon cancer. He declined the flu vaccine and stated he is generally against vaccinations. [facility] Social History Alcohol intake: current Alcohol intake frequency: 3 or more drinks per day Alcohol type: hard liquor Patient Tobacco Use Status: Former Tobacco user e-Cigarette/Vaping Use: Never Used Substance Use Type: Crack/Cocaine Current occupational status: unemployed Cognitive needs: No Hearing needs: No Vision needs: No Questionnaire PHQ-9 Over the last 2 weeks, how often have you been bothered by any of the following problems? 1. Little interest or pleasure in doing things: not at all 2. Feeling down, depressed, or hopeless: not at all 3. Trouble falling or staying asleep, or sleeping too much: not at all 4. Feeling tired or having little energy: not at all 5. Poor appetite or overeating: not at all 6. Feeling bad about yourself - or that you are a failure or have let yourself or your family down: not at all 7. Trouble concentrating on things, such as reading the newspaper or watching television: not at all 8. Moving or speaking so slowly that other people could have noticed. Or the opposite - being so fidgety or restless that you have been moving around a lot more than usual: not at all 9. Thoughts that you would be better off or of hurting yourself in some way: not at all Total score: 0 Source: Developed by Drs. Kevin Rich, Linda Love, Oli Leyva and colleagues, with an educational neeru from [employer]. Thrive Questionnaire Date Thrive assessed: 04/14/25 I am a: Patient What is your living situation today?: I have a steady place to live Within the past 12 months, did the food you bought not last and you didn't have the money to get more?: Never true Within the past 12 months, did you worry whether your food would run out before you got money to buy more?: Never true Do you have trouble paying for medicines?: No Do you have trouble getting transportation to medical appointments?: No Do you have trouble paying your heating and electricity bill?: No Do you have trouble taking care of your child, family member or friend?: No Do you have trouble with day-to-day activities such as bathing, preparing meals, shopping, managing finances, etc.?: No Are you currently unemployed and looking for a job?: Yes Are you interested in more education?: No Please select the resources that you would like help with: None Currently or been in a relationship where the following occur: No concerns reported THRIVE Score: 0 AUDIT C Alcohol Use Questionnaire (AUDIT-C) 1. How often do you have a drink containing alcohol?: 4 or more times a week 2. How many drinks containing alcohol do you have on a typical day when you are drinking?: 10 or more 3. How often do you have six or more drinks on one occasion?: Daily or almost daily Total Score: 12 MICHAEL-7 AMB Questionnaire MICHAEL-7 Date MICHAEL - 7 assessed: 04/14/25 Feeling nervous, anxious, or on edge: 0 = Not at all Not being able to stop or control worryin = Not at all Worrying too much about different things: 0 = Not at all Trouble relaxin = Not at all Being so restless that it is hard to sit still: 0 = Not at all Becoming easily annoyed or irritable: 0 = Not at all Feeling afraid as if something awful might happen: 0 = Not at all Total MICHAEL-7 score (0-4 normal; 5-9 mild; 10-14 moderate; 15-21 severe): 0 Source: Developed by Drs. Kevin Rich, Linda Love, Oli Leyva and colleagues, with an educational neeru from [employer]. Review of Systems Const Details: As per HPI. Physical exam (Primary Care) Vital Signs: Last Vital Signs Pulse 86 04/14/25 09:58 Resp 18 04/14/25 09:58 BP 122/70 04/14/25 09:58 Pulse Ox 98 04/14/25 09:58 Oxygen Delivery Method Room Air 04/14/25 09:58 BMI result Body Mass Index 28.6 Tobacco/Smoking Status: Tobacco use Status Tobacco use date assessed 04/14/25 04/14/25 10:07 Patient Tobacco Use Status Former Tobacco user 04/14/25 10:07 e-Cigarette/Vaping Use Never Used 04/14/25 10:07 PHQ-9: PHQ-9 Score PHQ-9: Total score 0 04/14/25 10:07 Thrive Assessment: Date of Thrive Assessment Date Thrive assessed 04/14/25 04/14/25 10:07 Currently or been in a relationship where the following occur: No concerns reported Const Other: Pertinent findings are in BOLD GENERAL APPEARANCE NAD, activity normal for age, well developed/ well nourished, no cyanosis, pallor, or diaphoresis. EYES lids/conjunctiva normal. EARS/NOSE/THROAT Mucous membranes moist, nares normal, lips/teeth normal uvula midline without oral pharyngeal erythema, exudate or swelling TMs normal bilaterally. No lymphangitis/lymphedema. HEAD/NECK normocephalic atraumatic, no facial trauma, neck is supple. RESPIRATORY respiratory effort normal, speaks in full sentences, no tripod position, no accessory muscle use. Lungs clear to auscultation without rhonchi, wheezes, rales CARDIAC Regular rate and rhythm, no edema. ABDOMINAL Soft, ND/NT. No evidence of fluid wave. No pulsatile masses on exam, rebound tenderness, Patel sign or pain over Mcburney's point. MUSCLES/EXTREMITIES No abnormal range of motion, no swelling. SKIN Warm, pink and dry. No rashes, dermatoses, petechiae or lesions. NEUROLOGICAL Speech is clear and appropriate. Normal level of consciousness. Gait and coordination are normal. 5/5 strength in all extremities. PSYCH Normal mood and affect. Judgement/competence is appropriate Coding Level of Care Code New Pt Level 4 (71328) Diagnoses Injury of left hand, initial encounter S69.92XA Encounter type: initial encounter Laterality: left Healthcare maintenance Z00.00 Substance use disorder F19.90 Time Spent (min) 30 Assessment & Plan Assessment & Plan (1) Hand injury: Code(s): S69.90XA - Unspecified injury of unspecified wrist, hand and finger(s), initial encounter Category: Medical Qualifiers: Encounter type: initial encounter Laterality: left Qualified Code(s): S69.92XA - Unspecified injury of left wrist, hand and finger(s), initial encounter Plan: Hand xray and ortho referral to assist with injury. Although the patient was told he has tendon injury based on x ray results, however I advised the patient that a tendon injury cannot be seen on Xray. Ortho referral to assist with MRI order in case deemed necessary by them. (2) Healthcare maintenance: Code(s): Z00.00 - Encounter for general adult medical examination without abnormal findings Category: Medical Plan: CBC, CMP, Lipid panel, A1C, TSH w T4, vit D. Ordered. Shingles 2 doses when >50 yo Declined. COVID: two doses. Declined. Pneumococcal: >50 yo. 18-49 with CKD, lung disease, weakened immune system, Heart disease, DM, cochlear implant. Declined. Flu vaccine: Declined. Tdap: every 10 years. Declined. Colonoscopy: 45-75. Will discuss at 45. AAA: 65 -75. Will discuss at 65. CT lun - 80. Will discuss at 50. PSA: 50 -70 every two years. Will discuss at 50. HIV: Ordered. HCV: Ordered. (3) Substance use disorder: Code(s): F19.90 - Other psychoactive substance use, unspecified, uncomplicated Category: Medical Plan: - The patient is actively seeking treatment and will be readmitted to a rehabilitation facility today. - He will continue to follow with his psychiatrist for medication management and therapy. - Patient was previously prescribed Gabapentin but he reports he is not taking it regularly. - The importance of honesty regarding relapses was emphasized, and the patient was reassured of continued, non-judgmental support. Plan I introduced myself as the patient's new primary care physician. Regarding his finger injury, I explained that x-rays typically show bone fractures rather than tendon injuries. I recommended a new x-ray and placed an urgent referral to Orthopedics for a definitive diagnosis, noting that they may require an MRI before considering surgery. We discussed his substance use, and I encouraged him to be honest about any relapses, assuring him of non-judgmental support to ensure his safety. I supported his plan to return to rehab and advised him to follow their treatment protocol. I ordered routine baseline lab work, including cholesterol, hepatitis C, HIV, thyroid, vitamin D, and B12 levels. The patient declined the flu vaccine. I instructed him to complete the x-ray today and the labs before his next visit in six months. Orders: Orders Comprehensive Met. Panel Today Z00.00 - Encounter for general adult medical examination without abnormal findings Hepatitis C Antibody Reflex Today Z00.00 - Encounter for general adult medical examination without abnormal findings HIV Ab/Ag Today Z00.00 - Encounter for general adult medical examination without abnormal findings Lipid Panel Today Z00.00 - Encounter for general adult medical examination without abnormal findings Hemoglobin A1c Today Z00.00 - Encounter for general adult medical examination without abnormal findings TSH reflex Free T4 Today Z00.00 - Encounter for general adult medical examination without abnormal findings Vitamin D 25-OH Total Today Z00.00 - Encounter for general adult medical exam ination without abnormal findings Vitamin B12 and Folate Today D64.9 - Anemia, unspecified, Z00.00 - Encounter for general adult medical examination without abnormal findings Referrals Orthopedics Referral T48.888H - Unspecified injury of unspecified muscle, fascia and tendon at wrist and hand level, unspecified hand, initial encounter
--- OUTSIDE RECORDS SUMMARY | 2025-04-14 18:06 | XMS_ITS | Clinical Summary ---
Author Organization [facility] Address [address] [place] [address] Care Team Providers Care Artificial Limb Fitter Name Role Phone Ref, Has No Pcp Or Primary Care Provider Unavail able Allergies Active Allergy Reactions Criticality Noted Date Comments Sulfa (Sulfonamide Antibiotics) Unknown 10/26 Medications gabapentin (NEURONTIN) 600 mg tablet Take 600 mg by mouth 2 times a day. Active Encounters Date Type Department Care Team Description 01/16/2025 6:19 PM EDT - 01/16/2025 7:[address] [facility] Emergency Department [address] [place] [address] Dex Davies MD Injury of extensor tendon of hand, left, initial encounter (Primary Dx) [facility]charge [facility] (INPT Psych facility/unit) (65) from Last 3 Months Social History Tobacco Use Types Packs/Day Years Used Date Smoking Tobacco: Never Assessed Sex and Gender Information Value Date Recorded Sex Assigned at Male 01/16/2025 7:01 PM EDT Legal Sex Male 6:07 PM EDT Gender Identity Not on file Sexual Orientation Not on file Last Filed Vital Signs Vital Sign Reading Time Taken Comments Blood Pressure 132/84 01/16/2025 6:12 PM EDT Pulse 80 01/16/2025 6:12 PM EDT Temperature 36.6 C (97.9 F) 01/16/2025 6:12 PM EDT Respiratory Rate 16 01/16/2025 6:12 PM EDT Oxygen Saturation 95% 01/16/2025 6:12 PM EDT Inhaled Oxygen Concentration - - Weight 85.2 kg (187 lb 14.4 oz) 01/16/2025 6:13 PM EDT Height 175.3 cm (5' 9 ) 01/16/2025 6:12 PM EDT Body Mass Index 27.75 01/16/2025 6:12 PM EDT Plan of Treatment Health Maintenance Due Date Last Done Comments HIV Screening 1986 Hepatitis C Screening 1986 Varicella Vaccines (1 of 2 - 13+ 2-dose series) 09/18/1999 Hepatitis B Vaccines (1 of 3 - 19+ 3-dose series) 2005 DTaP,Tdap,and Td Vaccines (1 - Tdap) 2008 Diabetes Screening 2021 Alcohol/Substance Use Screening 05/27/2024 Depression Screening and Follow-Up 05/27/2024 Social Drivers of Health Chapis ual Screening 05/27/2024 Influenza Vaccine (#1) 2024 COVID-19 Vaccine (1 - 2024-2 6 season) 2025 Pneumococcal Vaccine: Pediat supa (0-5 Years) and At-Risk Patients (6-50 Years) Aged Out No longer eligible b ased on patient's age to complete this topic Procedures * Due to [place] [employer] law, this organization might not be sharing negative HIV tests. Procedure Name Priority Date/Time Associated Diagnosis Comments ED SPLINT APPLICATION Routine 01/16/2025 7:45 PM EDT XR HAND 3+ VW LEFT STAT 01/16/2025 6: 37 PM EDT from Last 3 Months Results * Due to [place] [employer] law, this organization might not be sharing negative HIV tests. * Splint Application - ED (01/16/2025 7:45 PM EDT) Dex Diaz MD - 01/16/2025 7:45 PM EDT Dex Davies MD 02/14/2025 9:03 PM Splint Application - ED Date/Time: 01/16/2025 7:45 PM Performed by: Dex Davies MD Authorized by: Dex Davies MD [place] Protocol: Procedure consent matches procedure scheduled: N/A Relevant tests/ Imaging studies available/reviewed: N/A Immediately prior to the procedure a time out was called: N/A Pre-procedure details: Sensation: Normal Procedure details: Laterality: Left Location: Finger Finger: L ring finger Strapping: no Cast type: Finger Splint type: Finger Post-procedure details: Pain: Unchanged Sensation: Normal Patient tolerance of procedure: Tolerated well, no immediate complications Dex Davies MD IN CLINIC/BEDSIDE ORDERABLES Fi nal Result * X-Ray Hand Left 3+ Views (01/16/2025 6:37 PM EDT) Anatomical Region Laterality Modality Upper Extremities, Hand Left Computed Radiography 01/16/2025 8:24 PM EDT Impressions 01/16/2025 8:24 PM EDT Left hand: No acute fracture or dislocation. If this radiology report contains a blank impression section, it is an incomplete radiology report. Please contact the interpreting radiologist or applicable radiology division as soon as possible to obtain the completed interpretation. Workstation ID: [id number] Narrative 01/16/2025 8:24 PM EDT COMPARISON: There are no prior studies available for comparison at this time. FINDINGS AND Resulting Agency Comment [id number] Procedure Note Bola Wilkes MD - 01/16/2025 COMPARISON: There are no prior studies available for comparison at thistime. FINDINGS AND IMPRESSION: Left hand: No acute fracture or dislocation. If this radiology report contains a blank impression section, it is anincomplete radiology report. Please contact the interpreting radiologistor applicable radiology division as soon as possible to obtain thecompleted interpretation. Workstation ID: [id number] Dex Davies MD IMG XR PROCEDURES Final Result from Last 3 Months Insurance [facility] MEDICAID Care Teams Artificial Limb Fitter Relationship Specialty Start Date End Date Ref, Has No Pcp Or DO NOT EDIT THIS RECORD VIA PROVIDER ON THE FLY PCP - General Nanotechnology Engineering Technician 01/16/25
--- OUTSIDE RECORDS SUMMARY | 2025-04-14 18:06 | XMS_ITS | Encounter Summary ---
Author Organization [facility] Address [address] [place] [phone] Phone Care Team Providers Care Cellular Equipment Installer Name Role Phone Pcp, Unknown Primary Care Provider Unavailabl e Encounter Details Date Type Department Care Team ([facility] st Contact Info) Description 01/29/2025 Telephone [employer] [facility] Orth[facility]ics & Sports Medicine [address] [place] [phone] Oseas Mckeon PA-C [address] [place] [address] Orthopedics & Sports Medicine, [facility] [place] [address] Social History Tobacco Use Types Packs/Day Years Used Date Smoking Tobacco: Never Assessed Sex and Gender Information Value Date Recorded Sex Assigned at Not on file Legal Sex Male 3:28 PM EDT Gender Identity Not on file Sexual Orientation Not on file documented as of this encounter Progress Notes * Abelardo Lezama - 01/29/2025 3:46 PM EDT [facility]. documented in this encounter Plan of Treatment Not on file documented as of this encounter Visit Diagnoses Not on filedocumented in this encounter Care Teams Cellular Equipment Installer Relationship Specialty Start Date End Date Pcp, Unknown PCP - General 01/29/25 documented as of this encounter Additional Source Comments The information contained in this document represents components of the legal health record. It is not the complete legal health record.[facility]
--- OUTSIDE RECORDS SUMMARY | 2025-04-14 18:06 | XMS_ITS | Clinical Summary ---
Author Organization [facility] Address [address] [place] [address] [place] [phone] Phone Care Team Providers Care Auto Specialty Services Manager Name Role Phone Pcp, Unknown Primary Care Provider Unavailabl e Encounters Date Type Department Care Team Description 01/29/2025 Telephone [employer] [facility] Orthopedics & Sports Medicine [address] [place] [address] [phone] Oseas Mckeon PA-C from Last 3 Months Social History Tobacco Use Types Packs/Day Years Used Date Smoking Tobacco: Never Assessed Sex and Gender Information Value Date Recorded Sex Assigned at Not on file Legal Sex Male 3:28 PM EDT Gender Identity Not on file Sexual Orientation Not on file Plan of Treatment Not on file Medical Devices Not on file Insurance [facility] [place] [address] ACO Member Subscriber Plan / Payer ( fective 2025-Present) Name:Fahad Chakraborty Relation to Subscriber:Self Name:Fahad Chakraborty Payer ID:[id number] Group ID:[id number] Type:Medicaid Address: [address] [place] [address] [facility] Member Subscriber Plan / Payer ( fective 2025-Present) Name:Fahad Chakraborty Relation to Subscriber:Self Name:Fahad Chakraborty Payer ID:[id number] Group ID:[id number] Type:Medicaid Address: [address] [place] [address] [facility] Member Subscriber Plan / Payer ( fective 2025-Present) Name:Fahad Chakraborty Relation to Subscriber:Self Name:Fahad Chakraborty Payer ID:[id number] Group ID:[id number] Type:Medicaid Address: [address] [place] [address] [facility] Care Teams Auto Specialty Services Manager Relationship Specialty Start Date End Date Pcp, Unknown PCP - General 01/29/25 Additional Source Comments The information contained in this document represents components of the legal health record. It is not the complete legal health record.[facility]
--- OUTSIDE RECORDS SUMMARY | 2025-04-14 18:06 | XMS_ITS | Clinical Summary ---
Author Organization [facility] Address [address] [address] Care Team Providers Care Scrap Preparation Supervisor Name Role Phone Unavailable Primary Care Provider [...]
--- OUTSIDE RECORDS SUMMARY | 2025-04-14 18:06 | XMS_ITS | Clinical Summary ---
Author Organization [facility] Address [address] [place] [address] Care Team Providers Care Bank Vault Clerk Name Role Phone Horacio Chun MD Primary Care Provider + [phone] Surgical History Surgery Date Site/Laterality Comments OTHER [...] of 3 - 19+ 3-dose series) 2005 HPV Vaccines (1 - 3-dose SCD M series) 2013 Depression Screening 05/27/2024 COVID-19 Vaccine (1 - 2024-2 6 season) 2025 Influenza Vaccine (#1) 2025 RSV Immunization Adult Patie nts (1 - 1-dose 75+ series) 2061 HIB Vaccines Aged Out No longer eligi [...] age to complete this topic Care Teams Bank Vault Clerk Relationship Specialty Start Date End Date Horacio Chun MD [address] [place] [address] ODESSA ZUNIGA [id number] PCP - General Internal Medicine 11/10/18
== END 2025-04-14 10:40 | disposition home or self-care (01) ==
LOC: HO.HMCH 09:46
PROVIDERS: Visit Provider Internal Medicine
DX: S69.92XA Unspecified injury of left wrist, hand and finger(s), initial encounter (principal); Z00.00 Encounter for general adult medical examination without abnormal findings; F19.90 Other psychoactive substance use, unspecified, uncomplicated